=== PATIENT | female | born 1975 | race African-American/Black ===

== ENCOUNTER 2022-11-29 14:02 | Inpatient (IN) | payer BC ==
[2022-11-29] MEDS ORDERED: ONDANSETRON 4 MG TABLET PO ONE (17:56)
[2022-11-29] MEDS ORDERED: ACETAMINOPHEN 1000 MG/100 ML BAG IVPB ONE (17:56)
[2022-11-29] MEDS ORDERED: FAMOTIDINE 20 MG/50 ML IVPB 20 MG/50 ML MG IVPB ONE ×2 (17:57→17:59)
[2022-11-29] MEDS ORDERED: ONDANSETRON 4 MG/2 ML VIAL ONE (17:59)
[2022-11-29] MEDS ORDERED: ACETAMINOPHEN INJECTION 100 ML IVPB ONE ×2 (17:59→22:35)
[2022-11-29 18:40] LABS: EPI CELLS 32 /uL (0-25.1); HYALINE CASTS 2 /uL (0-3.1); URINE APPEARANCE TURBID; URINE BILIRUBIN 1+ (NEGATIVE); URINE COLOR ORANGE; URINE GLUCOSE (UA) NEGATIVE (NEGATIVE); URINE KETONE 2+ (NEGATIVE); URINE LEUK ESTERASE 1+ (NEGATIVE); URINE NITRITE POSITIVE (NEGATIVE); URINE PROTEIN 3+ (NEGATIVE); URINE RBC 37910 /uL (0-23.9); URINE WBC 50 /uL (0-25.8)
[2022-11-29] MEDS ORDERED: SODIUM CHLORIDE 0.9% 500 ML INFUS.BAG IV ONE (19:01)
[2022-11-29 20:00] LABS: MAGNESIUM 2.1 mg/dL (1.8-2.4)
[2022-11-29 21:08] LABS: BASO % 0.6 % (0-2.0); EOS % 0.2 % (0-4.5); HEMATOCRIT 41.2 % (32.4-45.2); HEMOGLOBIN 13.1 GM/dL (10.7-15.3); LYMPH % 9.2 % (8-40); MCH 25.4 pg (25.7-33.7); MCHC 31.9 g/dl (32.0-36.0); MEAN CELL VOLUME 79.6 fl (80-96); MEAN PLT VOLUME 7.8 fl (7.5-11.1); MONO % 3.3 % (3.8-10.2); NEUT % 86.7 % (42.8-82.8); PLATELET COUNT 392 10^3/uL (134-434); RBC 5.18 M/mm3 (3.60-5.2); RDW 16.6 % (11.6-15.6); WHITE BLOOD COUNT 5.7 K/mm3 (4.0-10.0)
[2022-11-29 21:36] LABS: ALBUMIN 3.3 g/dl (3.4-5.0); CALCIUM 9.1 mg/dL (8.5-10.1)
[2022-11-29 21:38] LABS: BLOOD UREA NITROGEN 7.7 mg/dL (7-18)
[2022-11-29 21:39] LABS: CREATININE 0.6 mg/dL (0.55-1.3)
[2022-11-29 21:42] LABS: BILIRUBIN,TOTAL 0.3 mg/dL (0.2-1); TOT PROT 6.8 g/dl (6.4-8.2)
[2022-11-29] MEDS ORDERED: CEFTRIAXONE 1,000 MG in DEXTROSE 5%-WATER - 50 ML IVPB ONE (21:56)
[2022-11-29] MEDS ORDERED: CEFTRIAXONE 1 GM/50 ML BAG ONE (22:33)
[2022-11-30] MEDS ORDERED: ACETAMINOPHEN 1000 MG/100 ML BAG IVPB ONE (00:09)
[2022-11-30] MEDS ORDERED: LIDOCAINE HCL 2% JELLY 6 ML TP ONE (02:58)
[2022-11-30] MEDS ORDERED: ONDANSETRON 4 MG/2 ML VIAL IVPUSH ONE (03:04)
[2022-11-30] MEDS ORDERED: LIDOCAINE HCL 2% JELLY 10 ML CARTRIDGE PR ONE (03:17)
[2022-11-30] MEDS ORDERED: morphine CARPU-JECT 4 MG/1 ML DISP.SYRIN IVPUSH ONE (03:17)
[2022-11-30] MEDS ORDERED: morphine SULFATE 4 MG/ML VIAL ONE (03:18)
[2022-11-30] MEDS ORDERED: ONDANSETRON 4 MG/2 ML VIAL ONE (03:18)
[2022-11-30 06:29] LABS: BASO % 1.3 % (0-2.0); EOS % 0.7 % (0-4.5); HEMATOCRIT 38.4 % (32.4-45.2); HEMOGLOBIN 12.3 GM/dL (10.7-15.3); LYMPH % 12.4 % (8-40); MCH 25.3 pg (25.7-33.7); MCHC 31.9 g/dl (32.0-36.0); MEAN CELL VOLUME 79.1 fl (80-96); MEAN PLT VOLUME 7.8 fl (7.5-11.1); MONO % 5.2 % (3.8-10.2); NEUT % 80.4 % (42.8-82.8); PLATELET COUNT 361 10^3/uL (134-434); RBC 4.85 M/mm3 (3.60-5.2); RDW 16.7 % (11.6-15.6); WHITE BLOOD COUNT 6.8 K/mm3 (4.0-10.0)
[2022-11-30 06:39] LABS: INR 1.13 (0.83-1.09); PROTHROMBIN TIME (PATIENT) 13.1 SEC (9.7-13.0)
[2022-11-30 06:49] LABS: MAGNESIUM 1.7 mg/dL (1.8-2.4)
[2022-11-30 06:53] LABS: PHOSPHOROUS 3.4 mg/dL (2.5-4.9)
[2022-11-30] MEDS ORDERED: ONDANSETRON 4 MG/2 ML VIAL IVPUSH PRN (08:00)
[2022-11-30] MEDS: SODIUM CHLORIDE 1,000 ML IV SCH ×2 (09:45→16:27)
[2022-11-30] MEDS ORDERED: ENOXAPARIN NA (PORCINE) 60 MG/0.6 ML DISP.SYRIN SQ SCH (13:30)
[2022-11-30] MEDS ORDERED: HEPARIN NA (PORCINE) 5,000 UNITS/ML 1ML VIAL IVPUSH PRN ×2 (17:34)
[2022-11-30] MEDS: HEPARIN - 25,000 UNIT in SODIUM CHLORIDE 495 ML IV SCH (19:07)
[2022-12-01] MEDS: SODIUM CHLORIDE 1,000 ML IV SCH (05:38)
[2022-12-01] MEDS: HEPARIN - 25,000 UNIT in SODIUM CHLORIDE 495 ML IV SCH ×3 (10:05→18:24)
[2022-12-01 13:04] VITALS: BMI 24.7
[2022-12-01] MEDS: LACTATED RINGERS SOLUTION 1,000 ML/1,000 ML INFUS.BAG IV SCH (18:22)
[2022-12-01 21:14] LABS: EOS % 1.9 % (0-4.5); HEMOGLOBIN 11.2 GM/dL (10.7-15.3); LYMPH % 19.9 % (8-40); MCH 25.2 pg (25.7-33.7); MCHC 31.9 g/dl (32.0-36.0); MEAN CELL VOLUME 78.9 fl (80-96); MEAN PLT VOLUME 7.4 fl (7.5-11.1); NEUT % 69.2 % (42.8-82.8); PLATELET COUNT 316 10^3/uL (134-434); RBC 4.43 M/mm3 (3.60-5.2); RDW 16.1 % (11.6-15.6); WHITE BLOOD COUNT 5.2 K/mm3 (4.0-10.0)
[2022-12-01 21:30] LABS: CALCIUM 8.3 mg/dL (8.5-10.1)
[2022-12-01 21:33] LABS: CREATININE 0.5 mg/dL (0.55-1.3)
[2022-12-01 21:34] LABS: TOT PROT 5.1 g/dl (6.4-8.2)
[2022-12-01 21:35] LABS: BILIRUBIN,TOTAL 0.3 mg/dL (0.2-1)
[2022-12-01 21:39] LABS: ALBUMIN 2.5 g/dl (3.4-5.0)
[2022-12-02] MEDS: LACTATED RINGERS SOLUTION 1,000 ML/1,000 ML INFUS.BAG IV SCH (04:20)
[2022-12-02 09:44] LABS: BASO % 1.2 % (0-2.0); EOS % 1.9 % (0-4.5); HEMATOCRIT 37.1 % (32.4-45.2); HEMOGLOBIN 11.8 GM/dL (10.7-15.3); LYMPH % 20.2 % (8-40); MCH 25.3 pg (25.7-33.7); MCHC 31.9 g/dl (32.0-36.0); MEAN CELL VOLUME 79.3 fl (80-96); MEAN PLT VOLUME 8.2 fl (7.5-11.1); MONO % 5.9 % (3.8-10.2); NEUT % 70.8 % (42.8-82.8); PLATELET COUNT 328 10^3/uL (134-434); RBC 4.69 M/mm3 (3.60-5.2); RDW 15.6 % (11.6-15.6); WHITE BLOOD COUNT 4.6 K/mm3 (4.0-10.0)
[2022-12-02] MEDS: HEPARIN - 25,000 UNIT in SODIUM CHLORIDE 495 ML IV SCH (10:00)
[2022-12-02 10:24] LABS: ALBUMIN 2.6 g/dl (3.4-5.0); BILIRUBIN,TOTAL 0.3 mg/dL (0.2-1); BLOOD UREA NITROGEN 10.5 mg/dL (7-18); CALCIUM 8.4 mg/dL (8.5-10.1); MAGNESIUM 1.7 mg/dL (1.8-2.4)
[2022-12-02 10:26] LABS: CREATININE 0.5 mg/dL (0.55-1.3)
[2022-12-02 10:27] LABS: TOT PROT 5.4 g/dl (6.4-8.2)
[2022-12-02] MEDS ORDERED: morphine SULFATE 4 MG/ML VIAL IVPB PRN ×2 (12:00→18:44)
[2022-12-02 15:34] LABS: INR 1.18 (0.83-1.09); PROTHROMBIN TIME (PATIENT) 13.7 SEC (9.7-13.0)
[2022-12-02 15:36] LABS: ACTIVATED PTT 29.3 SECONDS (25.2-36.5)
[2022-12-02] MEDS ORDERED: ceFAZolin SODIUM 1 GM VIAL IVPB ONE ×2 (15:47→16:21)
[2022-12-02] MEDS ORDERED: DEXAMETHASONE SOD PHOSPHATE 4 MG/1 ML VIAL ONE (15:49)
[2022-12-02] MEDS ORDERED: LIDOCAINE HCL/PF 2% SDV 5ML VIAL ONE (15:49)
[2022-12-02] MEDS ORDERED: ROCURONIUM BROMIDE 50 MG/5 ML SYRINGE ONE ×2 (15:49→17:04)
[2022-12-02] MEDS ORDERED: MIDAZOLAM HCL 2 MG/2 ML SINGLE DOSE VIAL ONE (15:49)
[2022-12-02] MEDS ORDERED: ONDANSETRON 4 MG/2 ML VIAL ONE (15:49)
[2022-12-02] MEDS ORDERED: PROPOFOL 20 ML ONE ×2 (15:49→16:16)
[2022-12-02] MEDS ORDERED: NEOSTIGMINE METHYLSULFATE 0.5 MG/1 ML - 10 ML MDV ONE (17:03)
[2022-12-02] MEDS ORDERED: ONDANSETRON 4 MG/2 ML VIAL IVPUSH PRN ×3 (18:05→18:44)
[2022-12-02] MEDS ORDERED: ACETAMINOPHEN 1000 MG/100 ML BAG IVPB ONE ×2 (18:06→18:44)
[2022-12-02] MEDS ORDERED: LACTATED RINGERS SOLUTION 1,000 ML IV SCH (18:15)
[2022-12-02] MEDS ORDERED: HYDROmorphone *PCA* 10MG/50ML DISP.SYRIN PCA SCH ×2 (18:15→18:44)
[2022-12-02] MEDS ORDERED: HYDROmorphone *PCA* 10MG/50ML DISP.SYRIN ONE (18:31)
[2022-12-02] MEDS ORDERED: ACETAMINOPHEN INJECTION 100 ML IVPB ONE (18:47)
[2022-12-02] MEDS: LACTATED RINGERS SOLUTION 1,000 ML IV SCH ×2 (20:41→23:40)
[2022-12-03 09:06] LABS: HEMATOCRIT 37.3 % (32.4-45.2); HEMOGLOBIN 12.3 GM/dL (10.7-15.3); MCH 25.9 pg (25.7-33.7); MCHC 33.1 g/dl (32.0-36.0); MEAN CELL VOLUME 78.4 fl (80-96); MEAN PLT VOLUME 7.3 fl (7.5-11.1); PLATELET COUNT 329 10^3/uL (134-434); RBC 4.76 M/mm3 (3.60-5.2); RDW 15.8 % (11.6-15.6); WHITE BLOOD COUNT 9.6 K/mm3 (4.0-10.0)
[2022-12-03 09:43] LABS: CALCIUM 8.1 mg/dL (8.5-10.1)
[2022-12-03 09:45] LABS: ALBUMIN 2.3 g/dl (3.4-5.0); BLOOD UREA NITROGEN 5.2 mg/dL (7-18); MAGNESIUM 1.5 mg/dL (1.8-2.4)
[2022-12-03 09:47] LABS: CREATININE 0.5 mg/dL (0.55-1.3)
[2022-12-03 09:49] LABS: BILIRUBIN,TOTAL 0.3 mg/dL (0.2-1); TOT PROT 4.9 g/dl (6.4-8.2)
[2022-12-03] MEDS: KETOROLAC TROMETHAMINE 30 MG/1 ML VIAL IVPUSH SCH ×2 (10:52→17:01)
[2022-12-03] MEDS: ACETAMINOPHEN 1000 MG/100 ML BAG IVPB SCH ×2 (12:45→17:00)
[2022-12-03] MEDS: LACTATED RINGERS SOLUTION 1,000 ML IV SCH (12:46)
[2022-12-03] MEDS: morphine SULFATE 4 MG/ML VIAL IVPUSH PRN ×2 (17:02→23:31)
[2022-12-04] MEDS: ACETAMINOPHEN 1000 MG/100 ML BAG IVPB SCH ×3 (00:03→11:58)
[2022-12-04] MEDS: KETOROLAC TROMETHAMINE 30 MG/1 ML VIAL IVPUSH SCH ×2 (01:46→10:33)
[2022-12-04] MEDS: LACTATED RINGERS SOLUTION 1,000 ML IV SCH (08:34)
[2022-12-04 08:42] LABS: HEMATOCRIT 35.5 % (32.4-45.2); HEMOGLOBIN 11.8 GM/dL (10.7-15.3); MCH 25.8 pg (25.7-33.7); MCHC 33.1 g/dl (32.0-36.0); MEAN CELL VOLUME 77.9 fl (80-96); MEAN PLT VOLUME 7.2 fl (7.5-11.1); PLATELET COUNT 247 10^3/uL (134-434); RBC 4.55 M/mm3 (3.60-5.2); RDW 15.3 % (11.6-15.6); WHITE BLOOD COUNT 7.1 K/mm3 (4.0-10.0)
[2022-12-04 11:24] LABS: ALBUMIN 2.1 g/dl (3.4-5.0); BLOOD UREA NITROGEN 4.4 mg/dL (7-18); MAGNESIUM 1.6 mg/dL (1.8-2.4)
[2022-12-04 11:25] LABS: BILIRUBIN,TOTAL 0.4 mg/dL (0.2-1); TOT PROT 4.8 g/dl (6.4-8.2)
[2022-12-04 11:28] LABS: CREATININE 0.4 mg/dL (0.55-1.3)
[2022-12-04 12:26] LABS: ANISOCYTOSIS 0; HELMET CELLS 0; HOWELL-JOLLY BODIES 0; MACROCYTOSIS 0; OVALOCYTE 0; ROULEAU 0; SICKELED CELLS 0; TARGET CELLS 0; TEAR DROP CELLS 0; TOXIC GRANULATION 0
[2022-12-04] MEDS: D5-1/2NS+20 MEQ KCL - 20 MEQ/1,000 ML INFUS.BAG IV SCH (13:30)
[2022-12-04] MEDS: morphine SULFATE 4 MG/ML VIAL IVPUSH PRN (19:14)
[2022-12-04] MEDS: RIVAROXABAN 10 MG TABLET PO SCH (21:48)
[2022-12-05] MEDS: D5-1/2NS+20 MEQ KCL - 20 MEQ/1,000 ML INFUS.BAG IV SCH ×4 (00:42→22:24)
[2022-12-05] MEDS: morphine SULFATE 4 MG/ML VIAL IVPUSH PRN ×2 (01:23→09:03)
[2022-12-05 09:34] LABS: HEMATOCRIT 35.6 % (32.4-45.2); HEMOGLOBIN 11.7 GM/dL (10.7-15.3); MCH 25.7 pg (25.7-33.7); MCHC 32.9 g/dl (32.0-36.0); MEAN CELL VOLUME 78.1 fl (80-96); MEAN PLT VOLUME 7.4 fl (7.5-11.1); PLATELET COUNT 269 10^3/uL (134-434); RBC 4.56 M/mm3 (3.60-5.2); RDW 15.8 % (11.6-15.6); WHITE BLOOD COUNT 6.3 K/mm3 (4.0-10.0)
[2022-12-05] MEDS ORDERED: morphine SULFATE 4 MG/ML VIAL IVPUSH PRN (10:55)
[2022-12-05] MEDS ORDERED: ACETAMINOPHEN 325 MG TABLET (FP) PO PRN (10:58)
[2022-12-05] MEDS: RIVAROXABAN 10 MG TABLET PO SCH (22:48)
[2022-12-06 07:59] LABS: BASO % 1.1 % (0-2.0); EOS % 12.4 % (0-4.5); HEMATOCRIT 31.8 % (32.4-45.2); HEMOGLOBIN 10.6 GM/dL (10.7-15.3); LYMPH % 18.6 % (8-40); MCH 25.7 pg (25.7-33.7); MCHC 33.2 g/dl (32.0-36.0); MEAN CELL VOLUME 77.5 fl (80-96); MEAN PLT VOLUME 7.3 fl (7.5-11.1); MONO % 9.7 % (3.8-10.2); NEUT % 58.2 % (42.8-82.8); PLATELET COUNT 258 10^3/uL (134-434); RDW 15.5 % (11.6-15.6); WHITE BLOOD COUNT 4.6 K/mm3 (4.0-10.0)
[2022-12-06 08:19] LABS: CHLORIDE 111 mmol/L (98-107); SODIUM 142 mmol/L (136-145)
[2022-12-06 08:27] LABS: ANION GAP 3 MMOL/L (8-16); CALCIUM 8.1 mg/dL (8.5-10.1); CO2 28 mmol/L (21-32); GLUCOSE,RANDOM 113 mg/dL (74-106)
[2022-12-06 08:31] LABS: CREATININE 0.4 mg/dL (0.55-1.3); SGOT/AST 10 U/L (15-37); SGPT/ALT 11 U/L (13-61)
[2022-12-06 08:32] LABS: BILIRUBIN,TOTAL 0.3 mg/dL (0.2-1); TOT PROT 4.6 g/dl (6.4-8.2)
[2022-12-06 08:33] LABS: ALK PHOS 56 U/L (45-117)
[2022-12-06 08:50] LABS: BLOOD UREA NITROGEN 1.7 mg/dL (7-18)
[2022-12-06] MEDS ORDERED: BENZOCAINE/MENTHOL 1 EACH LOZENGE MM PRN (10:10)
[2022-12-06] MEDS: IBUPROFEN 600 MG TABLET (FP) PO SCH ×2 (11:30→20:23)
[2022-12-06] MEDS: ACETAMINOPHEN 500 MG TABLET (FP) PO SCH ×2 (11:31→17:27)
[2022-12-06] MEDS ORDERED: ACETAMINOPHEN 1000 MG/100 ML BAG IVPB PRN ×2 (20:35→20:38)
[2022-12-06] MEDS: RIVAROXABAN 10 MG TABLET PO SCH (22:17)
[2022-12-07 15:22] VITALS: BP 132/71; PULSE 77; RESP 18; TEMP 99.2
== END 2022-12-07 17:57 | disposition home or self-care (01) | DRG 742 ==
LOC: JER 14:02 → JERBED 11-30 03:06 → J8W 11-30 13:04
PROVIDERS: ADMIT Internal Medicine; ATTEND Internal Medicine
PROC: 0UT70ZZ Resection of Bilateral Fallopian Tubes, Open Approach (ICD-10-PCS; 2022-12-02)
PROC: 0WQF0ZZ Repair Abdominal Wall, Open Approach (ICD-10-PCS; 2022-12-02)
PROC: 0DNW0ZZ Release Peritoneum, Open Approach (ICD-10-PCS; 2022-12-02)
PROC: 0UT90ZZ Resection of Uterus, Open Approach (ICD-10-PCS; principal; 2022-12-02 15:00)
DX: D25.1 Intramural leiomyoma of uterus (principal); K42.0 Umbilical hernia with obstruction, without gangrene; R18.8 Other ascites; K66.0 Peritoneal adhesions (postprocedural) (postinfection); N93.9 Abnormal uterine and vaginal bleeding, unspecified; R10.9 Unspecified abdominal pain
CPT/HCPCS: 0241U-QW; 36415; 74019-TC-FY; 74177-TC; 76705-TC; 76856-TC; 80053; 81003; 83036; 83690; 83735; 84100; 84443; 84703; 85025; 85027; 85610; 85730; 86850; 86900; 86901; 87077; 87086; 87186; 88302-TC; 88307-TC; 93005; 93010; 93970-TC; 94760; 97116-GP; 97161-GP; 99285-25; J1644; Q9967